=== PATIENT | female | born 1945 | race Caucasian/White ===

== ENCOUNTER → 2019-05-29 14:15 | Outpatient (BNVA) | payer MEDICARE, SELFPAY | PROVIDERS: Visit Provider Nurse Practitioner Family | DX: S52.91XA Unspecified fracture of right forearm, initial encounter for closed fracture (principal); S52.601A Unspecified fracture of lower end of right ulna, initial encounter for closed fracture; X58.XXXA Exposure to other specified factors, initial encounter; Z53.09 Procedure and treatment not carried out because of other contraindication | CPT/HCPCS: 73110; 80053; 85610 ==

== ENCOUNTER 2020-06-28 06:00 | Outpatient (RCR) | payer MEDICARE, SELFPAY | END 2020-06-28 23:59 | disposition home or self-care (01) | LOC: GPT 06:00 | PROVIDERS: Referring Provider Orthopaedic Surgery; Visit Provider Orthopaedic Surgery | DX: Z47.1 Aftercare following joint replacement surgery (principal); Z96.651 Presence of right artificial knee joint | CPT/HCPCS: 97032; 97110; 97112; 97116; 97161; 97530; 97760 ==

== ENCOUNTER 2020-06-29 06:00 | Outpatient (RCR) | payer MEDICARE, SELFPAY | END 2020-07-29 23:59 | disposition home or self-care (01) | LOC: GPT 06:00 | PROVIDERS: Referring Provider Orthopaedic Surgery; Visit Provider Orthopaedic Surgery | DX: Z47.1 Aftercare following joint replacement surgery (principal); Z96.651 Presence of right artificial knee joint | CPT/HCPCS: 97032; 97110; 97112; 97116; 97164; 97530; 97760 ==

== ENCOUNTER 2020-07-30 06:00 | Outpatient (RCR) | payer MEDICARE, SELFPAY | END 2020-08-28 23:59 | disposition home or self-care (01) | LOC: GPT 06:00 | PROVIDERS: Referring Provider Orthopaedic Surgery; Visit Provider Orthopaedic Surgery | DX: Z47.1 Aftercare following joint replacement surgery (principal); Z96.651 Presence of right artificial knee joint | CPT/HCPCS: 97110; 97112; 97116; 97530 ==

== ENCOUNTER 2020-08-13 15:15 | Outpatient (RCR) | payer MEDICARE, SELFPAY | END 2020-08-28 23:59 | disposition home or self-care (01) | LOC: GST 15:15 | PROVIDERS: Referring Provider Family Medicine; Visit Provider Family Medicine | DX: F09 Unspecified mental disorder due to known physiological condition (principal); R41.3 Other amnesia | CPT/HCPCS: 92523 ==

== ENCOUNTER 2020-11-18 06:00 | Outpatient (RCR) | payer MEDICARE, SELFPAY | END 2020-11-28 23:59 | disposition home or self-care (01) | LOC: GST 06:00 | PROVIDERS: Referring Provider Family Medicine; Visit Provider Family Medicine | DX: R13.10 Dysphagia, unspecified (principal); R41.81 Age-related cognitive decline | CPT/HCPCS: 92507; 92523 ==

== ENCOUNTER → 2021-06-18 10:14 | Outpatient (BNVA) | payer MEDICARE, SELFPAY | PROVIDERS: Referring Provider Family Medicine; Visit Provider Nurse Practitioner | DX: G30.9 Alzheimer's disease, unspecified (principal); F02.80 Dementia in other diseases classified elsewhere, unspecified severity, without behavioral disturbance, psychotic disturbance, mood disturbance, and anxiety | CPT/HCPCS: 99204 ==

== ENCOUNTER → 2021-09-10 13:58 | Outpatient (BNVA) | payer MEDICARE, SELFPAY | PROVIDERS: Visit Provider Nurse Practitioner | DX: G30.9 Alzheimer's disease, unspecified (principal); F02.80 Dementia in other diseases classified elsewhere, unspecified severity, without behavioral disturbance, psychotic disturbance, mood disturbance, and anxiety | CPT/HCPCS: 99213; 99214 ==